=== PATIENT | male | born 1990 | race Caucasian/White ===

== ENCOUNTER 2018-11-23 01:48 | Emergency (ER) | payer SELFPAY ==
[~2018-11-23] VITALS: Ht 167.6 cm; Wt 108.8 kg
[2018-11-23 01:51] VITALS: Ht 167.6 cm; Wt 108.8 kg
[2018-11-23] MEDS ORDERED: ACETAMINOPHEN 500 MG TAB PO STA (02:33)
[2018-11-23] MEDS ORDERED: METHOCARBAMOL 750 MG TAB PO ONE (03:00)
[2018-11-23] MEDS ORDERED: ACET-2047 PO (05:29)
[2018-11-23] MEDS ORDERED: METH750T93 PO (05:29)
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
[2018-11-23 05:34] VITALS: BP 134/81; PULSE 80; RESP 16
== END 2018-11-23 05:34 | disposition home or self-care (01) ==
LOC: FTE 01:48
DX: M54.9 Dorsalgia, unspecified (principal); M79.642 Pain in left hand; M79.641 Pain in right hand; M25.531 Pain in right wrist; M25.532 Pain in left wrist